=== PATIENT | female | born 1990 | race Caucasian/White ===

== ENCOUNTER 2021-05-29 11:58 | Emergency (ER) | payer MEDICAID, SELFPAY ==
--- NOTE | 2021-05-29 | ECG_ITS ---
Test Reason : CP Blood Pressure : / mmHG Vent. Rate : 069 BPM Atrial Rate : 069 BPM P-R Int : 128 ms QRS Dur : 092 ms QT Int : 400 ms P-R-T Axes : 026 035 030 degrees QTc Int : 428 ms Sinus rhythm with sinus arrhythmia with occasional Premature ventricular complexes Cannot rule out Anterior infarct , age undetermined Abnormal ECG No previous ECGs available Referred By: Generic ED Physician Electronically Signed By:MIRANDA WEAVER
--- NOTE | ~2021-05-29 | CT_ITS ---
EXAMINATION: CT ABDOMEN AND PELVIS WITH CONTRAST CLINICAL INFORMATION: Abdominal pain COMPARISON: None TECHNIQUE: Multidetector volumetric images were obtained from the superior aspect of the liver through the pubic symphysis following administration 100 mL of Omnipaque 350 intravenous contrast. Sagittal and coronal reformatted images were obtained on the technologist's workstation. Oral contrast: No This CT examination was performed using dose optimization techniques as appropriate, variously including the following: *Automated exposure control *Adjustment of mA and/or kV according to patient size (this includes techniques or standardized protocols for targeted exams where dose is matched to indication/reason for exam; i.e. extremities or head) *Use of iterative reconstruction technique DLP: 1437.90 mGy-cm FINDINGS: LUNG BASES: Linear consolidation in the right middle lobe. LIVER, GALLBLADDER, AND BILIARY TREE: The liver is normal in size, shape, and attenuation. No focal hepatic lesion or biliary ductal dilatation is present. Prior cholecystectomy. There is stent in the common bile duct extending into the duodenum. PANCREAS: Unremarkable. SPLEEN: Unremarkable. ADRENAL GLANDS: Unremarkable. KIDNEYS AND URETERS: The kidneys are normal in size, shape, and attenuation. No hydronephrosis, hydroureter, or calculi seen. No perinephric stranding. BLADDER: Unremarkable. GASTROINTESTINAL TRACT: The small and large bowel are unremarkable. The appendix is unremarkable. ABDOMINAL WALL: No significant hernia is appreciated. LYMPH NODES: Multiple small mesenteric lymph nodes in the mid abdomen as well as mild mesenteric fat stranding. VASCULAR: Unremarkable. PELVIC VISCERA: Unremarkable. OSSEOUS STRUCTURES: Unremarkable. CT/CT abdomen pelvis w con IMPRESSION: Multiple small mesenteric lymph nodes in the mid abdomen as well as mild mesenteric fat stranding may be due to mesenteric adenitis.
--- NOTE | ~2021-05-29 | CT_ITS ---
EXAMINATION: CT HEAD WITHOUT CONTRAST CLINICAL INFORMATION: Headache COMPARISON: None TECHNIQUE: Contiguous axial imaging was performed from the skull base to vertex without intravenous administration of contrast. This CT examination was performed using dose optimization techniques as appropriate, variously including the following: *Automated exposure control *Adjustment of mA and/or kV according to patient size (this includes techniques or standardized protocols for targeted exams where dose is matched to indication/reason for exam; i.e. extremities or head) *Use of iterative reconstruction technique DLP: 2356 mGy-cm FINDINGS: There is no evidence of acute intracranial hemorrhage or territorial infarction. No abnormal mass effect or midline shift is seen. [place] to white matter differentiation is well preserved. No extra-axial fluid collections are identified. The ventricles are normal in size. There is no abnormal attenuation within the brain parenchyma. The osseous structures and soft tissues are normal. The mastoid air cells and visualized portions of the paranasal sinuses are well aerated. CT/CT head/brain wo con IMPRESSION: No acute intracranial pathology.
[2021-05-29 12:45] VITALS: BP 125/65; PULSE 57; RESP 18; TEMP 36.3; O2SAT 96; BMI 54.1
--- NOTE | 2021-05-29 15:54 | ED.GENADULT ---
HPI - General Adult General Chief complaint: General Medical Stated complaint: headache, nausea, vomiting Time Seen by Provider: 05/29/21 15:50 History of Present Illness HPI narrative: Patient is a 30-year-old female presents today with having headache and nausea. Patient had a history of cholangitis. Was recently admitted to [facility]. At that time patient had an ERCP done was placed on antibiotics. She was admitted from the 5th to the [facility]. Was started on 2 days worth of antibiotics. Today had nausea. Has no abdominal pain. Positive generalized malaise weakness. Also had a mild headache that is diffuse over the entire abdomen. No coughing or congestion or upper respiratory symptoms. No diaphoresis. Patient is from home. Patient is vaccinated. Denies any bloody stool. Denies any abdominal pain. No neck pain no diaphoresis. Headache is gradual in onset is throbbing. Patient had a previous history of appendectomy and cholecystectomy done in [place]. It was done many years ago. Patient denies any pain on urination. Related Data Previous Rx's Medication Instructions Recorded ondansetron 4 mg disintegrating 4 mg PO TID PRN 5 Days #10 tab 05/29/21 tablet Allergies Allergy/AdvReac Type Severity Reaction Status Date / Time No Known Allergies Allergy Verified 05/29/21 15:50 Review of Systems Review of Systems: No fever no chills no chest pain No diaphoresis Positive nausea Positive headache No focal weakness all system reviewed otherwise negative [facility] Past Medical History Attestation statement: The following information was validated with the patient. Social History Social History Advance Directives: No Advance Directives Information Provided: No Patient : No Physical Exam Vital Signs: Vital Signs: Last Vital Signs Temp 97.3 F 05/29/21 12:45 Pulse 57 05/29/21 12:45 Resp 18 05/29/21 12:45 BP 125/65 05/29/21 12:45 Pulse Ox 96 05/29/21 12:45 Body Mass Index 54.1 Appearance: Alert. Oriented X3. No acute distress. Eyes: Pupils equal, round and reactive to light. ENT: Pharynx normal. Neck: Normal inspection. Neck supple. No lymph nodes noted. No crepitus CVS: Normal heart rate and rhythm. Pulses normal. Normal S1 and S2 Respiratory: No respiratory distress. Breath sounds normal. No Wheezing. No rales Abdomen: Soft and nontender. No rigidity. No distention. good BS x4 Skin: Skin warm and dry. Normal skin color. Normal skin turgor. Extremities: No lower extremity edema. Neurovascular intact to all extremities. No Lacerations. No Rash Neuro: Oriented X 3. No motor deficit. No sensory deficit. Moving all extermities. No slurred speech Medical Decision Making MDM Narrative Medical decision making narrative: CT scan of the heart was grossly negative for any acute evidence of bleeding. Patient given IV fluids. Monitor in the emergency department. Electrolytes unremarkable. Liver function tests show minimally elevated alk-phos only. CT scan of the abdomen showed no obstruction no abscess no perforation. It did show some lymph nodes consistent with adenitis. Could be residual from the colon guidance. Patient will be discharged home. There is no abscess is no perforation. There is no obstruction. Patient in stable condition. Lab Data Result diagrams: 05/29/21 16:47 05/29/21 16:47 Labs: Lab Results 05/29/21 05/29/21 Range/Units 16:47 16:47 WBC 13.0 H (4.8-10.8) X10*3/uL RBC 4.25 (4.20-5.50) X10*6/uL Hgb 12.4 (12.0-16.0) g/dl Hct 38.3 (37-47) % MCV 90.1 (80-98) fL MCH 29.2 (27.0-33.0) pg MCHC 32.4 (31.0-35.0) g/dl RDW 15.0 (11.0-16.0) % Plt Count 439 H (160-400) X10*3/uL MPV 9.7 (9.4-12.3) fL Immature Gran % (Auto) 0.8 H (0.0-0.4) % Neut % (Auto) 61.4 (45-73) % Lymph % (Auto) 30.8 (20-40) % [place] % (Auto) 5.1 (2-11) % Eos % (Auto) 1.7 (0-4) % Baso % (Auto) 0.2 (0-2) % Lymph # (Auto) 4.0 (1.2-4.9) X10*3/uL [place] # (Auto) 0.7 (0.1-1.2) X10*3/uL Eos # (Auto) 0.2 (0.0-0.4) X10*3/uL Baso # (Auto) 0.0 (0.0-0.2) X10*3/uL Abs Immat Gran (auto) 0.10 H (0.00-0.03) X10*3/uL Absolute Neuts (auto) 8.0 (2.0-8.3) X10*3/uL Absolute Nucleated RBC 0.000 (0.0-0.012) X10*3/uL Nucleated RBC % (auto) 0.0 (0.0-0.2) /100WBC Sodium 138 (135-145) mmol/L Potassium 4.1 (3.3-5.1) mmol/L Chloride 107 (96-108) mmol/L Carbon Dioxide 24 (22-29) mmol/L Anion Gap 11 L (12-20) BUN 9 (9-16) mg/dL Creatinine 0.73 (0.5-1.4) mg/dL Estim Creat Clear Calc 168.7 Estimated GFR > 60 Random Glucose 94 (60-115) mg/dL Calcium 9.7 (8.4-10.2) mg/dL Total Bilirubin 0.7 (0.0-1.0) mg/dL AST 17 (5-31) U/L ALT 31 (0-31) U/L Alkaline Phosphatase 125 H (39-117) U/L Total Protein 6.9 (6.5-8.0) g/dL Albumin 3.9 (3.5-5.0) g/dL Lipase 33 (8-78) U/L Beta HCG, Quant < 2 mIU/mL Discharge Plan Discharge Clinical Impression: Abdominal pain, Headache Patient Disposition: Home, Self-Care Instructions: Acute Headache (ED), Abdominal Pain (ED) Prescriptions: New ondansetron 4 mg tablet,disintegrating 4 mg PO TID PRN (Reason: nausea and vomiting) 5 Days Qty: 10 RF: 0 Referrals: [facility] [Provider Group] - 2 days Physician,None [Primary Care Provider] - 2 days Print Language: Greek
[2021-05-29] MEDS: Ketorolac Tromethamine 15 MG/ML VIAL IVPUSH (16:50)
[2021-05-29] MEDS: Ondansetron ODT 4 MG TAB.RAPDIS SUBLINGUAL (16:50)
[2021-05-29] MEDS: 0.9 % Sodium Chloride 1,000 ML 999 ML IV (16:50)
[2021-05-29 16:53] LABS: Basophils Percent Auto 0.2 % (0-2); Eosinophils Absolute Auto 0.2 X10*3/uL (0.0-0.4); Eosinophils Percent Auto 1.7 % (0-4); Hematocrit 38.3 % (37-47); Hemoglobin 12.4 g/dl (12.0-16.0); Imm Gran Pct Auto 0.8 % (0.0-0.4); Lymphocytes Percent Auto 30.8 % (20-40); MANUAL DIFF FLAG NO; Mean Corpuscular HGB Conc 32.4 g/dl (31.0-35.0); Mean Corpuscular Hemoglobin 29.2 pg (27.0-33.0); Mean Corpuscular Volume 90.1 fL (80-98); Mean Platelet Volume 9.7 fL (9.4-12.3); Monocytes Absolute Auto 0.7 X10*3/uL (0.1-1.2); Monocytes Percent Auto 5.1 % (2-11); Neutrophils Percent Auto 61.4 % (45-73); Platelet Count 439 X10*3/uL (160-400); Red Blood Count 4.25 X10*6/uL (4.20-5.50)
[2021-05-29 17:09] LABS: Alanine Aminotransferase 31 U/L (0-31); Albumin Level 3.9 g/dL (3.5-5.0); Alkaline Phosphatase 125 U/L (39-117); Anion Gap 11 (12-20); Aspartate Amino Transferase 17 U/L (5-31); Bilirubin Total 0.7 mg/dL (0.0-1.0); Blood Urea Nitrogen 9 mg/dL (9-16); Calcium 9.7 mg/dL (8.4-10.2); Carbon Dioxide 24 mmol/L (22-29); Chloride 107 mmol/L (96-108); Creatinine Clr Calc Pharmacy 168.7; Estimated Glomerular Filt Rate > 60; Glucose Random 94 mg/dL (60-115); Lipase 33 U/L (8-78); Potassium 4.1 mmol/L (3.3-5.1); Sodium 138 mmol/L (135-145); Total Protein 6.9 g/dL (6.5-8.0)
[2021-05-29 17:19] LABS: HCG Quantitative < 2 mIU/mL
[2021-05-29] MEDS: iohexoL 350 MG/ML 100 ML INFUS..BTL IV (18:03)
== END 2021-05-29 19:54 | disposition home or self-care (01) ==
PROVIDERS: Emergency Provider Emergency Medicine Emergency Medical Services
DX: R51.9 Headache, unspecified (principal); R11.0 Nausea; R10.9 Unspecified abdominal pain; Z79.899 Other long term (current) drug therapy
CPT/HCPCS: 36415; 70450; 74177; 80053; 83690; 84702; 85025; 93005; 96361; 96374; 99284; 99285; J1885; Q9967

== ENCOUNTER 2021-08-06 00:02 | Emergency (ER) | payer OTHER, SELFPAY ==
--- NOTE | ~2021-08-06 | CT_ITS ---
EXAMINATION: CT ABDOMEN AND PELVIS WITHOUT CONTRAST CLINICAL INFORMATION: Flank pain COMPARISON: 05/29/2021 TECHNIQUE: Multidetector volumetric imaging was performed from the superior aspect of the liver through the pubic symphysis. Sagittal and coronal reformatted images were obtained on the technologist's workstation. This CT examination was performed using dose optimization techniques as appropriate, variously including the following: *Automated exposure control *Adjustment of mA and/or kV according to patient size (this includes techniques or standardized protocols for targeted exams where dose is matched to indication/reason for exam; i.e. extremities or head) *Use of iterative reconstruction technique DLP: 1451 mGy-cm FINDINGS: LUNG BASES: The visualized lung bases are unremarkable. LIVER, GALLBLADDER, AND BILIARY TREE: The liver is homogeneous in attenuation. There are 2 common bile duct stents. Trace pneumobilia noted in the left lobe. No appreciable intrahepatic biliary ductal dilatation. PANCREAS: Unremarkable. SPLEEN: Unremarkable. ADRENAL GLANDS: Unremarkable. KIDNEYS AND URETERS: The kidneys are normal in size, shape, and attenuation. No hydronephrosis, hydroureter, or calculi seen. No perinephric stranding. BLADDER: Minimally distended and grossly unremarkable. GASTROINTESTINAL TRACT: Small bowel suture line noted in the right lower quadrant. No evidence of bowel obstruction. No significant bowel wall thickening is seen. ABDOMINAL WALL: No significant hernia is appreciated. LYMPH NODES: Scattered mesenteric and retroperitoneal subcentimeter lymph nodes are present, without significant enlargement by size criteria. Mild associated stranding noted in the mid abdomen, similar to prior. VASCULAR: Unremarkable. PELVIC VISCERA: Unremarkable. OSSEOUS STRUCTURES: Unremarkable. CT/CT abdomen pelvis wo con IMPRESSION: 1. No hydronephrosis or ureteral calculus bilaterally. 2. Common bile duct stents in place, without appreciable biliary ductal dilatation. 3. Redemonstrated mild stranding adjacent to subcentimeter lymph nodes in the central abdomen, of uncertain etiology and similar to prior; this may represent a chronic finding.
[2021-08-06 00:29] VITALS: BP 122/72; PULSE 71; RESP 16; TEMP 36.4; O2SAT 98; BMI 58.2
[2021-08-06 01:02] LABS: Basophils Percent Auto 0.2 % (0-2); Eosinophils Absolute Auto 0.2 X10*3/uL (0.0-0.4); Eosinophils Percent Auto 1.9 % (0-4); Hematocrit 38.8 % (37.0-47.0); Hemoglobin 12.9 g/dl (12.0-16.0); Imm Gran Abs Auto 0.03 X10*3/uL (0.00-0.03); Imm Gran Pct Auto 0.2 % (0.0-0.4); Lymphocytes Absolute Auto 5.2 X10*3/uL (1.2-4.9); Lymphocytes Percent Auto 41.3 % (20-40); MANUAL DIFF FLAG SCAN; Mean Corpuscular HGB Conc 33.2 g/dl (31.0-35.0); Mean Corpuscular Hemoglobin 29.3 pg (27.0-33.0); Mean Corpuscular Volume 88.2 fL (80.0-98.0); Mean Platelet Volume 10.2 fL (9.4-12.3); Monocytes Absolute Auto 0.7 X10*3/uL (0.1-1.2); Monocytes Percent Auto 5.9 % (2-11); Neutrophils Absolute Auto 6.4 x10*3/uL (2.0-8.3); Neutrophils Percent Auto 50.5 % (45-73); Platelet Count 399 X10*3/uL (160-400); Red Cell Distribution Width 13.5 % (11.0-16.0); SCAN SMEAR FLAG 1; White Blood Count 12.6 X10*3/uL (4.8-10.8)
[2021-08-06 01:02] LABS: Appearance Urine CLEAR; Color Urine YELLOW; Glucose Urine UA NEG (NEG); Leukocyte Esterase Urine NEG (NEG); Nitrite Urine NEG (NEG); PH 6.5 (5.0-8.0); Urine Blood NEG (NEG); Urine Ketones NEG (NEG); Urine Protein NEG (NEG-TRACE)
[2021-08-06 01:03] LABS: SLIDE REVIEW VERIFIED
[2021-08-06 01:21] LABS: Alanine Aminotransferase 22 U/L (0-31); Alkaline Phosphatase 80 U/L (39-117); Anion Gap 15 (12-20); Aspartate Amino Transferase 16 U/L (5-31); Bilirubin Total 0.2 mg/dL (0.0-1.0); Blood Urea Nitrogen 15 mg/dL (9-16); Calcium 9.6 mg/dL (8.4-10.2); Carbon Dioxide 23 mmol/L (22-29); Chloride 106 mmol/L (96-108); Creatinine Clr Calc Pharmacy 163.5; Estimated Glomerular Filt Rate > 60; Glucose Random 90 mg/dL (60-115); Lipase 31 U/L (8-78); Potassium 4.2 mmol/L (3.3-5.1); Sodium 140 mmol/L (135-145); Total Protein 7.1 g/dL (6.5-8.0)
[2021-08-06 02:55] VITALS: BP 139/66; PULSE 78; RESP 18; TEMP 36.9; O2SAT 100
[2021-08-06 03:09] LABS: Urine Pregnancy NEGATIVE (NEGATIVE)
[2021-08-06 03:10] LABS: UPreg QC Valid YES
--- NOTE | 2021-08-06 04:27 | ED_ITS ---
HPI - Abdominal Pain General Chief Complaint: Abdominal Pain Stated Complaint: abd pain Time Seen by Provider: 08/06/21 04:20 Source: patient Mode of arrival: ambulatory Limitations: no limitations History of Present Illness HPI narrative: Patient comes to emergency room complaining of epigastric pain. Patient states that on August 02 she had an ERCP done in [place], [place]. Patient states that earlier today she started feeling some epigastric discomfort. Patient states that in her discharge instructions stated that if she has any abdominal pain to return to the emergency room. Denies fever chills, no vomiting or diarrhea Related Data Previous Rx's Medication Instructions Recorded ondansetron 4 mg disintegrating 4 mg PO TID PRN 5 Days #10 tab 05/29/21 tablet tramadol 50 mg tablet 50 mg PO Q8H PRN #7 tab 08/06/21 Allergies Allergy/AdvReac Type Severity Reaction Status Date / Time clindamycin Allergy Hives Verified 08/06/21 00:37 Review of Systems Review of Systems Constitutional : No Weight loss, No Fever, No Chills, No Night Sweats, No Fatigue, No Malaise ENT/Mouth : No Hearing loss, No Ear Pain, No Nasal Congestion, No Sinus Pain, No Hoarseness, No sore throat, No Rhinorrhea, No Swallowing Difficulty Eyes: No Eye Pain, No Swelling, No Redness, No Foreign Body, No Discharge, No Vision Changes Cardiovascular : No Chest Pain, No SOB, No Dyspnea on Exertion, No Orthopnea, No Edema, No Palpitations Respiratory : No Cough, No Sputum, No Wheezing, No Smoke Exposure, No Dyspnea Gastrointestinal : No Nausea, No Vomiting, No Diarrhea, No Constipation, complaining of epigastric pain, No Hematochezia, No Melena Genitourinary : no irregular bleeding, No Dysuria, No Urinary Frequency, No Hematuria, No Urinary Incontinence, No Urgency, No Flank Pain, No Urinary Flow Changes, No Hesitancy Musculoskeletal : No joint pain, No Myalgias, No Joint Swelling Skin : No Skin Lesions, No rash Neuro : No Weakness, No Numbness, No Paresthesias, No Loss of Consciousness, No Dizziness, No Headache Psych : No Anxiety/Panic, No Depression, No SI/HI/AH/VH, No Social Issues, Heme/Lymph: No Bruising, No Bleeding,No Lymphadenopathy Endocrine : No Polyuria, No Polydipsia, No Temperature Intolerance Physical Exam Vital Signs: Vital Signs: Last Vital Signs Temp 98.4 F 08/06/21 02:55 Pulse 78 08/06/21 02:55 Resp 18 08/06/21 02:55 BP 139/66 08/06/21 02:55 Pulse Ox 100 08/06/21 02:55 Body Mass Index 58.2 Const: Other: Appearance: Alert. Oriented X3. No acute distress. Morbidly obese. Eyes: Pupils equal, round and reactive to light. ENT: Pharynx normal. Neck: Normal inspection. Neck supple. No lymph nodes noted. No crepitus CVS: Normal heart rate and rhythm. Pulses normal. Normal S1 and S2 Respiratory: No respiratory distress. Breath sounds normal. No Wheezing. No rales Abdomen: Soft , very mild discomfort to palpation in the epigastric area, no rebound, no guarding No rigidity. No distention. good BS x4 Skin: Skin warm and dry. Normal skin color. Normal skin turgor. Extremities: No lower extremity edema. No Lacerations. No Rash Neuro: Oriented X 3. No motor deficit. No sensory deficit. Moving all extermities. No slurred speech. Course Course Course Narrative: I discussed with the patient that her labs are unremarkable, CT scan does not show any perforation or pancreatitis. I discussed with the patient that she if she has any worsening or ongoing pain, she needs to return to the emergency room. Patient was given 1 dose of IM Toradol. Patient instructed to follow-up with gastroenterology, since she cannot return to [place] for follow-up MDM - Abdominal Pain Lab Data Result diagrams: 08/06/21 00:52 08/06/21 00:52 Labs: Lab Results 08/06/21 08/06/21 08/06/21 Range/Units 00:50 00:52 00:52 WBC 12.6 H (4.8-10.8) X10*3/uL RBC 4.40 (4.20-5.50) X10*6/uL Hgb 12.9 (12.0-16.0) g/dl Hct 38.8 (37.0-47.0) % MCV 88.2 (80.0-98.0) fL MCH 29.3 (27.0-33.0) pg MCHC 33.2 (31.0-35.0) g/dl RDW 13.5 (11.0-16.0) % Plt Count 399 (160-400) X10*3/uL MPV 10.2 (9.4-12.3) fL Immature Gran % (Auto) 0.2 (0.0-0.4) % Neut % (Auto) 50.5 (45-73) % Lymph % (Auto) 41.3 H (20-40) % [place] % (Auto) 5.9 (2-11) % Eos % (Auto) 1.9 (0-4) % Baso % (Auto) 0.2 (0-2) % Lymph # (Auto) 5.2 H (1.2-4.9) X10*3/uL [place] # (Auto) 0.7 (0.1-1.2) X10*3/uL Eos # (Auto) 0.2 (0.0-0.4) X10*3/uL Baso # (Auto) 0.0 (0.0-0.2) X10*3/uL Abs Immat Gran (auto) 0.03 (0.00-0.03) X10*3/uL Absolute Neuts (auto) 6.4 (2.0-8.3) x10*3/uL Absolute Nucleated RBC 0.000 (0.0-0.012) X10*3/uL Nucleated RBC % (auto) 0.0 (0.0-0.2) /100WBC Smear Tech's Comments VERIFIED Sodium 140 (135-145) mmol/L Potassium 4.2 (3.3-5.1) mmol/L Chloride 106 (96-108) mmol/L Carbon Dioxide 23 (22-29) mmol/L Anion Gap 15 (12-20) BUN 15 D (9-16) mg/dL Creatinine 0.79 (0.5-1.4) mg/dL Estim Creat Clear Calc 163.5 Estimated GFR > 60 Random Glucose 90 (60-115) mg/dL Calcium 9.6 (8.4-10.2) mg/dL Total Bilirubin 0.2 (0.0-1.0) mg/dL AST 16 (5-31) U/L ALT 22 (0-31) U/L Alkaline Phosphatase 80 D (39-117) U/L Total Protein 7.1 (6.5-8.0) g/dL Albumin 4.0 (3.5-5.0) g/dL Lipase 31 (8-78) U/L Urine Color YELLOW Urine Appearance CLEAR Urine pH 6.5 (5.0-8.0) Ur Specific [place] 1.020 (1.005-1.025) Urine Protein NEG (NEG-TRACE) MG/DL Urine Glucose (UA) NEG (NEG) MG/DL Urine Ketones NEG (NEG) MG/DL Urine Blood NEG (NEG) Urine Nitrite NEG (NEG) Ur Leukocyte Esterase NEG (NEG) Urine Test (NEGATIVE) 08/06/21 Range/Units 03:03 WBC (4.8-10.8) X10*3/uL RBC (4.20-5.50) X10*6/uL Hgb (12.0-16.0) g/dl Hct (37.0-47.0) % MCV (80.0-98.0) fL MCH (27.0-33.0) pg MCHC (31.0-35.0) g/dl RDW (11.0-16.0) % Plt Count (160-400) X10*3/uL MPV (9.4-12.3) fL Immature Gran % (Auto) (0.0-0.4) % Neut % (Auto) (45-73) % Lymph % (Auto) (20-40) % [place] % (Auto) (2-11) % Eos % (Auto) (0-4) % Baso % (Auto) (0-2) % Lymph # (Auto) (1.2-4.9) X10*3/uL [place] # (Auto) (0.1-1.2) X10*3/uL Eos # (Auto) (0.0-0.4) X10*3/uL Baso # (Auto) (0.0-0.2) X10*3/uL Abs Immat Gran (auto) (0.00-0.03) X10*3/uL Absolute Neuts (auto) (2.0-8.3) x10*3/uL Absolute Nucleated RBC (0.0-0.012) X10*3/uL Nucleated RBC % (auto) (0.0-0.2) /100WBC Smear Tech's Comments Sodium (135-145) mmol/L Potassium (3.3-5.1) mmol/L Chloride (96-108) mmol/L Carbon Dioxide (22-29) mmol/L Anion Gap (12-20) BUN (9-16) mg/dL Creatinine (0.5-1.4) mg/dL Estim Creat Clear Calc Estimated GFR Random Glucose (60-115) mg/dL Calcium (8.4-10.2) mg/dL Total Bilirubin (0.0-1.0) mg/dL AST (5-31) U/L ALT (0-31) U/L Alkaline Phosphatase (39-117) U/L Total Protein (6.5-8.0) g/dL Albumin (3.5-5.0) g/dL Lipase (8-78) U/L Urine Color Urine Appearance Urine pH (5.0-8.0) Ur Specific [place] (1.005-1.025) Urine Protein (NEG-TRACE) MG/DL Urine Glucose (UA) (NEG) MG/DL Urine Ketones (NEG) MG/DL Urine Blood (NEG) Urine Nitrite (NEG) Ur Leukocyte Esterase (NEG) Urine Test NEGATIVE (NEGATIVE) Imaging Data CT scan - abdomen: Radiologist's impression: FINDINGS: LUNG BASES: The visualized lung bases are unremarkable.? LIVER, GALLBLADDER, AND BILIARY TREE: The liver is homogeneous in attenuation. There are 2 common bile duct stents. Trace pneumobilia noted in the left lobe. No appreciable intrahepatic biliary ductal dilatation. PANCREAS: Unremarkable.? SPLEEN: Unremarkable.? ADRENAL GLANDS: Unremarkable.? KIDNEYS AND URETERS: The kidneys are normal in size, shape, and attenuation. No hydronephrosis, hydroureter, or calculi seen. No perinephric stranding. BLADDER: Minimally distended and grossly unremarkable.? GASTROINTESTINAL TRACT: Small bowel suture line noted in the right lower quadrant. No evidence of bowel obstruction. No significant bowel wall thickening is seen. ABDOMINAL WALL: No significant hernia is appreciated.? LYMPH NODES: Scattered mesenteric and retroperitoneal subcentimeter lymph nodes are present, without significant enlargement by size criteria. Mild associated stranding noted in the mid abdomen, similar to prior. VASCULAR: Unremarkable. PELVIC VISCERA: Unremarkable.? OSSEOUS STRUCTURES: Unremarkable.? CT/CT abdomen pelvis wo con IMPRESSION: 1.? No hydronephrosis or ureteral calculus bilaterally. 2.? Common bile duct stents in place, without appreciable biliary ductal dilatation. 3.? Redemonstrated mild stranding adjacent to subcentimeter lymph nodes in the central abdomen, of uncertain etiology and similar to prior; this may represent a chronic finding. ? Discharge Plan Discharge Clinical Impression: Acute epigastric pain Patient Disposition: Home, Self-Care Instructions: Epigastric Pain (ED) Additional Instructions: Please follow-up with your primary care physician tomorrow. If you have any worsening or new symptoms, please return to the emergency room or call 911 Prescriptions: New tramadol 50 mg tablet 50 mg PO Q8H PRN (Reason: pain) Qty: 7 RF: 0 No Action ondansetron 4 mg tablet,disintegrating 4 mg PO TID PRN (Reason: nausea and vomiting) 5 Days Qty: 10 RF: 0 PMFSH Past Medical History Surgical History (Updated 08/06/21 @ 04:28 by Breanna Oliva MD) S/P ERCP Social History Social History Advance Directives: No Advance Directives Information Provided: Yes
[2021-08-06] MEDS: Ketorolac Tromethamine 60 MG/2 ML VIAL IM (04:49)
[2021-08-06 05:03] VITALS: BP 120/66; PULSE 66; RESP 16
== END 2021-08-06 05:04 | disposition home or self-care (01) ==
PROVIDERS: Emergency Provider Emergency Medicine
DX: R10.13 Epigastric pain (principal); Z98.890 Other specified postprocedural states
CPT/HCPCS: 36415; 74176; 80053; 81003; 81025; 83690; 85025; 96372; 99284; J1885

== ENCOUNTER 2021-08-28 20:04 | Emergency (ER) | payer MEDICAID, SELFPAY ==
[2021-08-28 20:09] VITALS: BP 121/70; PULSE 81; RESP 16; TEMP 36.9; O2SAT 99; BMI 31.6
--- NOTE | 2021-08-29 01:41 | ECG_ITS ---
Test Reason : chest pain Blood Pressure : / mmHG Vent. Rate : 080 BPM Atrial Rate : 080 BPM P-R Int : 146 ms QRS Dur : 090 ms QT Int : 380 ms P-R-T Axes : 031 054 050 degrees QTc Int : 438 ms Sinus rhythm with sinus arrhythmia with frequent Premature ventricular complexes Otherwise normal ECG When compared with ECG of 29-MAY-2021 12:53, No significant change was found Referred By: Danelle Shepard Electronically Signed By:KARI NGUYEN MD
[2021-08-29 06:20] LABS: Basophils Percent Auto 0.3 % (0-2); Eosinophils Absolute Auto 0.2 X10*3/uL (0.0-0.4); Eosinophils Percent Auto 2.4 % (0-4); Hematocrit 36.6 % (37.0-47.0); Hemoglobin 11.8 g/dl (12.0-16.0); Imm Gran Abs Auto 0.03 X10*3/uL (0.00-0.03); Imm Gran Pct Auto 0.3 % (0.0-0.4); Lymphocytes Absolute Auto 4.3 X10*3/uL (1.2-4.9); Lymphocytes Percent Auto 48.5 % (20-40); MANUAL DIFF FLAG NO; Mean Corpuscular HGB Conc 32.2 g/dl (31.0-35.0); Mean Corpuscular Hemoglobin 28.9 pg (27.0-33.0); Mean Corpuscular Volume 89.5 fL (80.0-98.0); Mean Platelet Volume 10.4 fL (9.4-12.3); Monocytes Absolute Auto 0.7 X10*3/uL (0.1-1.2); Monocytes Percent Auto 7.5 % (2-11); Neutrophils Absolute Auto 3.6 x10*3/uL (2.0-8.3); Platelet Count 387 X10*3/uL (160-400); Red Blood Count 4.09 X10*6/uL (4.20-5.50); Red Cell Distribution Width 13.7 % (11.0-16.0); White Blood Count 8.8 X10*3/uL (4.8-10.8)
[2021-08-29 06:22] LABS: Anion Gap 12 (12-20); Carbon Dioxide 24 mmol/L (22-29); Chloride 107 mmol/L (96-108); HCG Quantitative < 2 mIU/mL; Magnesium 1.9 mg/dL (1.6-2.6); Potassium 4.2 mmol/L (3.3-5.1); Sodium 139 mmol/L (135-145)
== END 2021-08-29 02:50 | disposition home or self-care (01) ==
PROVIDERS: Emergency Provider Emergency Medicine Emergency Medical Services
DX: F41.9 Anxiety disorder, unspecified (principal); R20.0 Anesthesia of skin; F17.200 Nicotine dependence, unspecified, uncomplicated
CPT/HCPCS: 36415; 80051; 83735; 84702; 85025; 93005; 96374; 96375; 99282; 99283; 99284

== ENCOUNTER 2021-09-15 15:37 | Emergency (ER) | payer MEDICAID, SELFPAY | END 2021-09-15 18:22 | disposition left against medical advice (07) | PROVIDERS: Emergency Provider Emergency Medicine | DX: R51.9 Headache, unspecified (principal) ==

== ENCOUNTER 2021-09-28 14:53 | Outpatient (REF) | payer MEDICAID, SELFPAY ==
[2021-09-28 15:37] LABS: Binax Internal Control QC Valid; Binax Lot number: 9864; Binax Now Covid-19 Ag Negative (Negative)
== END 2021-09-28 14:54 | disposition home or self-care (01) ==
LOC: HO.LAB 14:53
PROVIDERS: Visit Provider Internal Medicine
DX: Z20.822 Contact with and (suspected) exposure to COVID-19 (principal)
CPT/HCPCS: C9803

== ENCOUNTER 2021-10-10 12:41 | Outpatient (REF) | payer MEDICAID, SELFPAY ==
--- NOTE | ~2021-10-10 | XR_ITS ---
EXAMINATION: CERVICAL, THORACIC AND LUMBAR SPINE. CLINICAL INFORMATION: Pain. COMPARISON: None TECHNIQUE: 3 views cervical spine, 3 views dorsal spine and 5 views lumbar spine. FINDINGS: Cervical spine: There is mild straightening of cervical lordosis. The vertebral heights, alignment and disc heights are normal. No visible acute fracture, dislocation or subluxation seen. The prevertebral soft tissues are normal. Dorsal spine: There is normal thoracic kyphosis. The vertebral heights, alignment and disc heights are normal. No visible acute fracture, dislocation or lytic process seen. Lumbar spine: There is normal lumbar lordosis. The vertebral heights, alignment and disc heights are normal. No visible acute fracture, dislocation or lytic process seen. The paravertebral soft tissues are normal. There are surgical john in the right upper quadrant from previous cholecystectomy. XR/XR thoracic spine 2V IMPRESSION: Mild straightening of cervical lordosis likely spasm. No visible acute fracture, dislocation or lytic process seen. Unremarkable dorsal spine exam. Unremarkable lumbar spine exam.
--- NOTE | ~2021-10-10 | XR_ITS ---
EXAMINATION: CERVICAL, THORACIC AND LUMBAR SPINE. CLINICAL INFORMATION: Pain. COMPARISON: None TECHNIQUE: 3 views cervical spine, 3 views dorsal spine and 5 views lumbar spine. FINDINGS: Cervical spine: There is mild straightening of cervical lordosis. The vertebral heights, alignment and disc heights are normal. No visible acute fracture, dislocation or subluxation seen. The prevertebral soft tissues are normal. Dorsal spine: There is normal thoracic kyphosis. The vertebral heights, alignment and disc heights are normal. No visible acute fracture, dislocation or lytic process seen. Lumbar spine: There is normal lumbar lordosis. The vertebral heights, alignment and disc heights are normal. No visible acute fracture, dislocation or lytic process seen. The paravertebral soft tissues are normal. There are surgical john in the right upper quadrant from previous cholecystectomy. XR/XR cervical spine 2V IMPRESSION: Mild straightening of cervical lordosis likely spasm. No visible acute fracture, dislocation or lytic process seen. Unremarkable dorsal spine exam. Unremarkable lumbar spine exam.
--- NOTE | ~2021-10-10 | XR_ITS ---
EXAMINATION: CERVICAL, THORACIC AND LUMBAR SPINE. CLINICAL INFORMATION: Pain. COMPARISON: None TECHNIQUE: 3 views cervical spine, 3 views dorsal spine and 5 views lumbar spine. FINDINGS: Cervical spine: There is mild straightening of cervical lordosis. The vertebral heights, alignment and disc heights are normal. No visible acute fracture, dislocation or subluxation seen. The prevertebral soft tissues are normal. Dorsal spine: There is normal thoracic kyphosis. The vertebral heights, alignment and disc heights are normal. No visible acute fracture, dislocation or lytic process seen. Lumbar spine: There is normal lumbar lordosis. The vertebral heights, alignment and disc heights are normal. No visible acute fracture, dislocation or lytic process seen. The paravertebral soft tissues are normal. There are surgical john in the right upper quadrant from previous cholecystectomy. XR/XR lumbar spine 2-3V IMPRESSION: Mild straightening of cervical lordosis likely spasm. No visible acute fracture, dislocation or lytic process seen. Unremarkable dorsal spine exam. Unremarkable lumbar spine exam.
== END 2021-10-10 12:42 | disposition home or self-care (01) ==
LOC: HO.XRAY 12:41
PROVIDERS: Absent Provider Nurse Practitioner Primary Care; PCP Nurse Practitioner Primary Care; Visit Provider Emergency Medicine
DX: M54.2 Cervicalgia (principal); M54.50 Low back pain, unspecified; M54.6 Pain in thoracic spine
CPT/HCPCS: 72040; 72070; 72100

== ENCOUNTER 2021-10-18 13:44 | Outpatient (REF) | payer MEDICAID, SELFPAY ==
--- NOTE | ~2021-10-18 | US_ITS ---
EXAM: Pelvic Ultrasound CLINICAL INDICATION: Abnormal uterine bleeding for 2 months. COMPARISON: No similar prior imaging available for comparison. TECHNIQUE: The pelvis was evaluated using transabdominal and transvaginal imaging. FINDINGS: The uterus measures 10.7 x 5.1 x 7.6 cm in longitudinal by AP by transverse dimension. The uterus has a mildly arcuate appearance. The endometrial stripe is not thickened and measures 1.2 cm. The left ovary measures approximately 3.1 x 1.7 x 3.8 cm and is normal. The right ovary measures approximately 3.9 x 2.2 x 1.9 cm and is also normal. There are no abnormal adnexal masses. There is no free fluid in the pelvis. US/US pelvic and transvaginal IMPRESSION: -Mild arcuate appearance of the uterus. -Endometrium measures 1.2 cm in thickness.
== END 2021-10-18 13:45 | disposition home or self-care (01) ==
LOC: HO.US 13:44
PROVIDERS: PCP Nurse Practitioner Primary Care; Visit Provider Nurse Practitioner Primary Care
DX: N92.6 Irregular menstruation, unspecified (principal)
CPT/HCPCS: 76830; 76856

== ENCOUNTER 2021-10-29 08:28 | Emergency (ER) | payer MEDICAID, SELFPAY | END 2021-10-29 10:05 | disposition left against medical advice (07) | PROVIDERS: Emergency Provider Emergency Medicine | DX: R10.9 Unspecified abdominal pain (principal) ==

== ENCOUNTER → 2021-11-26 14:35 | Outpatient (BNVA) | payer MEDICAID, SELFPAY | PROVIDERS: PCP Nurse Practitioner Primary Care; Referring Provider Nurse Practitioner Primary Care; Visit Provider Internal Medicine Gastroenterology | DX: K60.2 Anal fissure, unspecified (principal); K83.1 Obstruction of bile duct | CPT/HCPCS: 99202 ==

== ENCOUNTER 2021-12-27 09:03 | Day surgery (SDC) | payer MEDICAID, SELFPAY ==
[2021-12-21 13:33] VITALS: BMI 52.4
--- NOTE | 2021-12-26 08:55 | HO.ANESPROP2 ---
Documented by User: Billie Banks NP 12/26/21 08:58 HPI - Anesthesia Eval Consult details Narrative: 31yo F for Colonoscopy PMFSH Active Problems Active Problems: All Active Problems (Updated 12/21/21 @ 13:36 by Sophia Armando RN) Anal fissure (Acute) Biliary stricture (Acute) Past Medical History Medical History Abdominal pain History of biliary stent insertion Family History Family History (Updated 11/26/21 @ 14:56 by IRENE Bliss) Mother HTN (hypertension) Diabetes Father Hernia Paternal Grandmother Colon cancer Paternal Grandfather Diabetes HTN (hypertension) Heart problem Surgical History Surgical History History of common bile duct surgery History of esophagogastroduodenoscopy (EGD) Hx of appendectomy Hx of cholecystectomy S/P ERCP Social History Social History Patient Tobacco Use Status: Never used Tobacco Advance Directives: No Advance Directives Information Provided: Yes Advance Directives on File: No Meds Allergies Allergy/AdvReac Type Severity Reaction Status Date / Time clindamycin Allergy Hives Verified 11/26/21 14:51 Exam Exam Date and Time: December 26, 2021 0855 Height,Weight and Vital Signs: Height 5 ft 5 in Weight 142.882 kg Narrative Narrative: EKG 08/2021 Vent. Rate : 080 BPM ? ? Atrial Rate : 080 BPM ?? P-R Int : 146 ms? QRS Dur : 090 ms ? ? QT Int : 380 ms ? ? ? P-R-T Axes : 031 054 050 degrees ?? QTc Int : 438 ms ? Sinus rhythm with sinus arrhythmia with frequent Premature ventricular complexes Otherwise normal ECG When compared with ECG of 29-MAY-2021 12:53, No significant change was found Assessment and Plan Assessment Anesthesia Assessment: Chart Reviewed Documented by User: Marcelino Lu MD 12/27/21 09:44 PMFSH Past Medical History Medical History Abdominal pain History of biliary stent insertion Family History Family History (Updated 11/26/21 @ 14:56 by IRENE Bliss) Mother HTN (hypertension) Diabetes Father Hernia Paternal Grandmother Colon cancer Paternal Grandfather Diabetes HTN (hypertension) Heart problem Family history of problems with anesthesia: No Surgical History Surgical History History of common bile duct surgery History of esophagogastroduodenoscopy (EGD) Hx of appendectomy Hx of cholecystectomy S/P ERCP History of Problems with Anesthesia: No Social History Social History Patient Tobacco Use Status: Never used Tobacco Advance Directives: No Advance Directives Information Provided: Yes Advance Directives on File: No Meds Allergies Allergy/AdvReac Type Severity Reaction Status Date / Time clindamycin Allergy Hives Verified 11/26/21 14:51 Exam Airway Mallampati Class: III TM Dist: >3cm Neck ROM: Full Assessment and Plan Assessment Anesthesia Assessment: Anesthesia Plan Discussed and Smoking Cess. Discussed Final Anesthetic Review Family History of Problems with Anesthesia: No History of Problems with Anesthesia: No NPO: Yes ASA Class: III Final Preanesthetic Review: No Changes in Pt Med Stat, Meds/Allgs Chart Reviewed, Consent Obtained/Reviewed and Anes Risks/Benef Reviewed Procedure Risk: Low Anesthetic Plan Anesthetic Plan: MAC: Disposition: Standard PACU
[2021-12-27 09:29] VITALS: BP 112/54; PULSE 61; RESP 16; TEMP 36.2; O2SAT 98
[2021-12-27 09:34] LABS: UPreg QC Valid YES; Urine Pregnancy NEGATIVE (NEGATIVE)
[2021-12-27] MEDS: Lactated Ringers 1,000 ML 100 ML IVCONT (09:37)
--- NOTE | 2021-12-27 09:58 | MHC.SHP ---
Pre-Procedural Eval Section A Date of Service: 12/27/21 Section B Chief Complaint: anal fissure Details of Present Illness: FH of CRC in mother, blood in stools Relevant Family History (Specify if Yes): Yes Relevant Social History: Tobacco Use Present Medications: see Short Stay Collaborative assessment Medical History: Significant History (Abdominal pain History of biliary stent insertion) History of Previous Operations: Relevant previous surgery/procedure and date(s) (cholecystectomy, appendectomy, ERCP) Allergies: Allergies Allergy/AdvReac Type Severity Reaction Status Date / Time clindamycin Allergy Hives Verified 11/26/21 14:51 Review of Systems Sugical H&P ROS: Negative: Constitution, Cardiovascular, Respiratory, Neurological, Psychiatric, Hem-Onc, Allergic/Immunologic, Gastrointestinal, Genitourinary, Musculoskeletal, Integumentary, Endocrine and Eyes/Ears/Nose/Throat Exam Surgical H&P Exam: Normal: HEENT, Normal: Heart, Normal: Lungs, Normal: Extremities, Normal: Abdomen, Normal: Skin and Normal: Neurological Plan Diagnosis/Plan: Unchanged I have reviewed the history and physical and performed a pertinent physical examination on my patient. No changes have occurred unless specified.
--- NOTE | 2021-12-27 10:02 | PM.OP ---
Brief Operative Note Date of Service: 12/27/21 Pre-op diagnosis: FH of CRC, anal fissure, blood in stools Post-op diagnosis: same Procedure: see op note Surgeon: Tha Bojorquez MD Anesthesia: MAC Was an Retail Loan Officer used for this Procedure?: No Estimated blood loss (mL): 0 Condition: stable Disposition: PACU
--- NOTE | 2021-12-27 10:03 | P.OP_ITS ---
Operative Note Operative Note Date of Service: 12/27/21 Narrative: Operative Information Procedure Description: Colonoscopy Indication: FH of CRC in mother, blood in stools, anal fissure Anesthesia: MAC COLONOSCOPY Instrument: Olympus variable stiffness adult scope 190L Colonoscopy Monitoring: Vital signs and clinical assessment, continuous EKG monitoring, Pulse oximetry, Carbon Dioxide monitoring and blood pressure monitoring were done throughout the procedure. Colon withdrawal time was 9 minutes. Procedure: The patient was placed in the left lateral decubitis position and pre-procedure medications were administered. After a digital rectal examination of the ano-rectum, the video colonoscope was inserted into the rectum and advanced through the colon to the cecum/TI. The colonoscope was slowly withdrawn in a retrograde panoramic fashion and the colon mucosa was carefully examined including a retroflexed view of the rectum. Findings and interventions are described below. Procedure Difficulty: easy Findings: Terminal Ileum-normal, bx taken Random colon bx taken Right sided retroflexionw as normal Cecum:normal Ascending Colon: normal Transverse Colon -normal Descending Colon:normal Sigmoid Colon: normal Rectum: Retroflexion with small internal hemorrhoids, grade I with small skin tag at anorectum Anorectum - normal, no anal fissure was seen Colon preparation: [place] Bowel Preparation Scale Right colon; 2 Transverse colon: 3 Left colon; 3 (0 = Unprepared colon segment with mucosa not seen due to solid stool that cannot be cleared. 1 = Portion of mucosa of the colon segment seen, but other areas of the colon segment not well seen due to staining, residual stool and/or opaque liquid. 2 = Minor amount of residual staining, small fragments of stool and/or opaque liquid, but mucosa of colon segment seen well. 3 = Entire mucosa of colon segment seen well with no residual staining, small fragments of stool or opaque liquid) Impression and Post Procedure Diagnosis: internal hemorrhoids Plan: High fiber diet leaflet Avoid straining at stool, epsom salts and sitz bath, anusol supps or cream Repeat Colonoscopy in 5 years due to Fh of cRC or earlier if clinically indicated Above findings were reviewed with the patient and relevant handouts were provided if indicated.
[2021-12-27 10:37] VITALS: BP 123/67; PULSE 74; RESP 16; TEMP 36.4; O2SAT 97
[2021-12-27 10:42] VITALS: BP 113/70; PULSE 66; RESP 16; TEMP 36.4; O2SAT 98
[2021-12-27 11:04] VITALS: BP 129/74; PULSE 59; RESP 18; O2SAT 98
== END 2021-12-27 11:33 | disposition home or self-care (01) ==
PROVIDERS: Nurse Practitioner; PCP Nurse Practitioner Primary Care; Visit Provider Internal Medicine Gastroenterology
PROC: 0DJD8ZZ Inspection of Lower Intestinal Tract, Via Natural or Artificial Opening Endoscopic (ICD-10-PCS; CPT 45378; principal; 2021-12-27 10:10)
DX: K60.2 Anal fissure, unspecified (principal); K92.1 Melena; Z80.0 Family history of malignant neoplasm of digestive organs; K64.0 First degree hemorrhoids; K64.4 Residual hemorrhoidal skin tags; Z88.1 Allergy status to other antibiotic agents; Z90.49 Acquired absence of other specified parts of digestive tract
CPT/HCPCS: 45380; 81025; 88305

== ENCOUNTER → 2022-02-04 13:13 | Outpatient (BNVA) | payer MEDICAID, SELFPAY | PROVIDERS: PCP Nurse Practitioner Primary Care; Visit Provider Internal Medicine Gastroenterology | DX: Z13.89 Encounter for screening for other disorder (principal) ==

== ENCOUNTER 2022-02-06 08:10 | Outpatient (REF) | payer MEDICAID, SELFPAY ==
--- NOTE | ~2022-02-06 | CT_ITS ---
EXAMINATION: CT HEAD WITHOUT CONTRAST CLINICAL INFORMATION: Headaches. COMPARISON: CT brain 05/29/2021 TECHNIQUE: Contiguous axial imaging was performed from the skull base to vertex without intravenous administration of contrast. This CT examination was performed using dose optimization techniques as appropriate, variously including the following: *Automated exposure control *Adjustment of mA and/or kV according to patient size (this includes techniques or standardized protocols for targeted exams where dose is matched to indication/reason for exam; i.e. extremities or head) *Use of iterative reconstruction technique DLP: 926 mGy-cm FINDINGS: There is no evidence of acute intracranial hemorrhage or territorial infarction. No abnormal mass effect or midline shift is seen. [place] to white matter differentiation is well preserved. No extra-axial fluid collections are identified. The ventricles are normal in size. There is no abnormal attenuation within the brain parenchyma. The osseous structures and soft tissues are normal. The mastoid air cells and visualized portions of the paranasal sinuses are well aerated. CT/CT head/brain wo con IMPRESSION: No acute intracranial process seen.
== END 2022-02-06 08:11 | disposition home or self-care (01) ==
LOC: HO.CT 08:10
PROVIDERS: Visit Provider Nurse Practitioner Primary Care
DX: G44.89 Other headache syndrome (principal)
CPT/HCPCS: 70450

== ENCOUNTER 2022-02-14 07:51 | Emergency (ER) | payer MEDICAID, SELFPAY ==
[2022-02-14 07:54] VITALS: BP 142/85; PULSE 66; RESP 18; TEMP 37; O2SAT 97; BMI 47.2
--- NOTE | 2022-02-14 07:58 | ED_ITS ---
HPI - Headache General Chief Complaint: Nausea/Vomiting/Diarrhea Stated Complaint: headache vomiting Time Seen by Provider: 02/14/22 07:57 Source: patient and investigative agent Mode of arrival: ambulatory Limitations: no limitations History of Present Illness MD elicited complaint: headache and migraine Pertinent past history: migraines Onset (ago): hour(s) (12) Onset description: gradually Location: generalized and band-like Severity: severe Quality & Timing: throbbing, constant, progressively worsening and similar to previous headaches Exacerbating factors: light and noise Relieving factors: rest Context: occurred at rest Associated symptoms: nausea, vomiting and photophobia Treatments prior to arrival: other (sumatriptan) Related Data Home Medications Medication Instructions Recorded Confirmed cholecalciferol (vitamin D3) 25 25 mcg PO DAILY 02/04/22 mcg (1,000 unit) capsule (Vitamin D3) doxylamine succinate 25 mg tablet 25 mg PO BEDTIME PRN 02/04/22 (Nighttime Sleep-Aid (doxylamine)) Previous Rx's Medication Instructions Recorded ondansetron 4 mg disintegrating 4 mg PO TID PRN 5 Days #10 tab 05/29/21 tablet pantoprazole 40 mg tablet,delayed 40 mg PO DAILY #20 tab 08/06/21 release (Protonix) tramadol 50 mg tablet 50 mg PO Q8H PRN #7 tab 08/06/21 nitroglycerin 0.4 % (w/w) rectal 1 inch [place] BID #30 g 11/26/21 ointment (Rectiv) peg-electrolyte solution 420 gram 240 ml PO Q10M #4000 ml 11/26/21 oral solution (Nulytely Lemon-Eyak) docusate sodium 100 mg capsule 100 mg PO BID #60 cap 02/04/22 (Colace) nifedipine 0.5% ointment #1 ea 02/04/22 ondansetron 4 mg disintegrating 4 mg PO Q8H PRN #20 tab 02/14/22 tablet Allergies Allergy/AdvReac Type Severity Reaction Status Date / Time clindamycin Allergy Hives Verified 02/04/22 13:14 Review of Systems Review of Systems: Constitutional : No Fever, No Chills, No Fatigue ENT/Mouth : No sore throat, No Rhinorrhea Eyes: No Eye Pain, No Swelling, No Redness Cardiovascular : No Chest Pain, No SOB, No Dyspnea on Exertion Respiratory : No Cough, No Sputum Gastrointestinal : pos Nausea, pos Vomiting, No Diarrhea, No abdominal Pain Genitourinary : No Dysuria, No Urinary Frequency, No Hematuria, Musculoskeletal : No joint pain, No Myalgias, No Joint Swelling Skin : No Skin Lesions, No rash Neuro : No Weakness, No Numbness, No Dizziness, positive Headache Psych : No Anxiety/Panic, No Depression Heme/Lymph: No Bruising, No Bleeding,No Lymphadenopathy Endocrine : No Polyuria, No Polydipsia All other systems reviewed and are negative [facility] Past Medical History Attestation statement: The following information was validated with the patient. Medical History Abdominal pain History of biliary stent insertion Migraines Surgical History History of common bile duct surgery History of esophagogastroduodenoscopy (EGD) Hx of appendectomy Hx of cholecystectomy Hx of colonoscopy S/P ERCP Family History Family History Mother HTN (hypertension) Diabetes Father Hernia Paternal Grandmother Colon cancer Paternal Grandfather Diabetes HTN (hypertension) Heart problem Social History Social History Patient Tobacco Use Status: Never used Tobacco Advance Directives: No Advance Directives Information Provided: Yes Physical Exam Vital Signs: Vital Signs: Last Vital Signs Temp 98.6 F 02/14/22 07:54 Pulse 66 02/14/22 07:54 Resp 18 02/14/22 07:54 BP 142/85 H 02/14/22 07:54 Pulse Ox 97 02/14/22 07:54 BMI result Body Mass Index 47.2 Appearance: Alert. Oriented X3. No acute distress. Eyes: Pupils equal, round and reactive to light. + photophobia ENT: Pharynx normal. Neck: Normal inspection. Neck supple. no meningeal signs CVS: Normal heart rate and rhythm. Pulses normal. Respiratory: No respiratory distress. Breath sounds normal. Abdomen: Soft and nontender. Skin: Skin warm and dry. Normal skin color. Normal skin turgor. Extremities: No lower extremity edema. No calf ttp Neuro: Oriented X 3. No motor deficit. No sensory deficit. 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 Dispo per results and findings. Discharge Plan Discharge Clinical Impression: Migraine Qualifiers: Migraine type: without aura Status migrainosus presence: without status migrainosus Intractability: not intractable Qualified Code(s): G43.009 - Migraine without aura, not intractable, without status migrainosus Patient Disposition: Home, Self-Care Instructions: Migraine Headache (ED) Additional Instructions: return to ED for any worsening symptoms or concerns Prescriptions: New ondansetron 4 mg tablet,disintegrating 4 mg PO Q8H PRN (Reason: nausea and vomiting) Qty: 20 0RF No Action (DME) nifedipine 0.5% ointment 30 grams ointment See Rx Instructions .Route .MEDSUPPLY Qty: 1 2RF Rx Instructions: As directed ondansetron 4 mg tablet,disintegrating 4 mg PO TID PRN (Reason: nausea and vomiting) 5 Days Qty: 10 0RF tramadol 50 mg tablet 50 mg PO Q8H PRN (Reason: pain) Qty: 7 0RF pantoprazole [Protonix] 40 mg tablet,delayed release (DR/EC) 40 mg PO DAILY Qty: 20 0RF Rectiv 0.4 % (w/w) ointment 1 inch WV BID Qty: 30 0RF peg-electrolyte soln [Nulytely Lemon-Eyak] 420 gram recon soln 240 ml PO Q10M Qty: 4000 0RF Rx Instructions: until fecal effluent is clear cholecalciferol (vitamin D3) [Vitamin D3] 25 mcg (1,000 unit) capsule 25 mcg PO DAILY 0RF Nighttime Sleep-Aid (doxylamn) 25 mg tablet 25 mg PO BEDTIME PRN (Reason: insomnia) 0RF docusate sodium [Colace] 100 mg capsule 100 mg PO BID Qty: 60 1RF Stand Alone Forms: Work/School Release Print Language: Italian
[2022-02-14] MEDS: 0.9 % Sodium Chloride 1,000 ML 999 ML IV (08:24)
[2022-02-14] MEDS: diphenhydrAMINE HCL 50 MG/ML VIAL 25 MG IVPUSH (08:25)
[2022-02-14] MEDS: Ketorolac Tromethamine 30 MG/ML VIAL IVPUSH (08:28)
[2022-02-14] MEDS: Metoclopramide HCl 10 MG/2 ML VIAL IVPUSH (08:29)
--- NOTE | 2022-02-14 08:29 | PC.NURSE ---
medicated for velazquez, alert, speech clear, skin wpd, pain x 2 days, photophobia and nausea
[2022-02-14 09:47] VITALS: PULSE 70; RESP 19; O2SAT 97
== END 2022-02-14 09:47 | disposition home or self-care (01) ==
PROVIDERS: Emergency Provider Emergency Medicine; PCP Nurse Practitioner Primary Care
DX: G43.009 Migraine without aura, not intractable, without status migrainosus (principal); Z79.899 Other long term (current) drug therapy
CPT/HCPCS: 96361; 96374; 96375; 99282; 99284; J1200; J1885; J2765

== ENCOUNTER 2022-03-17 00:38 | Emergency (ER) | payer MEDICAID, SELFPAY ==
--- NOTE | ~2022-03-17 | CT_ITS ---
EXAMINATION: CT ABDOMEN AND PELVIS WITHOUT CONTRAST CLINICAL INFORMATION: Left flank pain. Rule out kidney stone. COMPARISON: 08/06/2021 TECHNIQUE: Multidetector volumetric imaging was performed from the superior aspect of the liver through the pubic symphysis. Sagittal and coronal reformatted images were obtained on the technologist's workstation. This CT examination was performed using dose optimization techniques as appropriate, variously including the following: *Automated exposure control *Adjustment of mA and/or kV according to patient size (this includes techniques or standardized protocols for targeted exams where dose is matched to indication/reason for exam; i.e. extremities or head) *Use of iterative reconstruction technique DLP: 1391 mGy-cm FINDINGS: LUNG BASES: The visualized lung bases are unremarkable. LIVER, GALLBLADDER, AND BILIARY TREE: The liver is normal in size, shape, and attenuation. No focal hepatic lesion or biliary ductal dilatation is present. Cholecystectomy. PANCREAS: Unremarkable. SPLEEN: Unremarkable. ADRENAL GLANDS: Unremarkable. KIDNEYS AND URETERS: The kidneys are normal in size, shape, and attenuation. No hydronephrosis, hydroureter, or calculi seen. No perinephric stranding. BLADDER: Unremarkable. GASTROINTESTINAL TRACT: The small and large bowel are unremarkable. The appendix is absent. ABDOMINAL WALL: No significant hernia is appreciated. LYMPH NODES: No lymphadenopathy. Mild stranding surrounding the mesenteric vasculature, similar to prior.. VASCULAR: Unremarkable. PELVIC VISCERA: The uterus and adnexa are unremarkable. OSSEOUS STRUCTURES: No acute or suspicious osseous abnormality. CT/CT abdomen pelvis wo con IMPRESSION: No acute finding of the abdomen or pelvis. No acute inflammation. No hydronephrosis or nephrolithiasis. Fleischner guidelines were followed.
[2022-03-17 00:42] VITALS: BP 156/86; PULSE 80; RESP 17; TEMP 36.6; O2SAT 99; BMI 52.3
[2022-03-17 01:10] LABS: MANUAL DIFF FLAG NO
[2022-03-17 01:12] LABS: Basophils Percent Auto 0.2 % (0-2); Eosinophils Absolute Auto 0.2 X10*3/uL (0.0-0.4); Eosinophils Percent Auto 1.4 % (0-4); Hematocrit 34.9 % (37.0-47.0); Hemoglobin 11.6 g/dl (12.0-16.0); Imm Gran Abs Auto 0.03 X10*3/uL (0.00-0.03); Imm Gran Pct Auto 0.3 % (0.0-0.4); Lymphocytes Absolute Auto 4.9 X10*3/uL (1.2-4.9); Lymphocytes Percent Auto 43.1 % (20-40); Mean Corpuscular HGB Conc 33.2 g/dl (31.0-35.0); Mean Corpuscular Hemoglobin 28.9 pg (27.0-33.0); Mean Corpuscular Volume 86.8 fL (80.0-98.0); Mean Platelet Volume 9.9 fL (9.4-12.3); Monocytes Absolute Auto 0.6 X10*3/uL (0.1-1.2); Monocytes Percent Auto 5.7 % (2-11); Neutrophils Absolute Auto 5.6 x10*3/uL (2.0-8.3); Neutrophils Percent Auto 49.3 % (45-73); Platelet Count 413 X10*3/uL (160-400); Red Blood Count 4.02 X10*6/uL (4.20-5.50); Red Cell Distribution Width 14.8 % (11.0-16.0); White Blood Count 11.3 X10*3/uL (4.8-10.8)
[2022-03-17 01:27] LABS: UPreg QC Valid YES; Urine Pregnancy NEGATIVE (NEGATIVE)
[2022-03-17 01:28] LABS: Appearance Urine CLEAR; Color Urine YELLOW; Glucose Urine UA NEG (NEG); Leukocyte Esterase Urine NEG (NEG); Nitrite Urine NEG (NEG); Specific Gravity - Urine >= 1.030 (1.005-1.025); UACC Culture Trigger NO; Urine Blood TRACE (NEG); Urine Ketones NEG (NEG); Urine Protein NEG (NEG-TRACE)
[2022-03-17 01:39] LABS: Alanine Aminotransferase 15 U/L (0-31); Albumin Level 4.3 g/dL (3.5-5.0); Alkaline Phosphatase 82 U/L (39-117); Anion Gap 12 (12-20); Aspartate Amino Transferase 15 U/L (5-31); Bilirubin Total 0.2 mg/dL (0.0-1.0); Blood Urea Nitrogen 11 mg/dL (9-16); Calcium 9.2 mg/dL (8.4-10.2); Carbon Dioxide 22 mmol/L (22-29); Chloride 110 mmol/L (96-108); Creatinine Clr Calc Pharmacy 153.3; Estimated Glomerular Filt Rate > 60; Glucose Random 84 mg/dL (60-115); Potassium 4.3 mmol/L (3.3-5.1); Sodium 140 mmol/L (135-145); Total Protein 7.1 g/dL (6.5-8.0)
[2022-03-17 01:44] LABS: Bacteria Urine 1+ /LPF; Mucus Urine 1+ /LPF; Squamous Epithelial Cell Urine 1+ /LPF
[2022-03-17 01:45] LABS: RBC Urine 0-2 /HPF (0); WBC Urine 0 /HPF (0-4)
--- NOTE | 2022-03-17 03:51 | ED.ABDPAIN ---
HPI - Abdominal Pain General Chief Complaint: Abdominal Pain Stated Complaint: Abdominal Pain Time Seen by Provider: 03/17/22 03:51 Source: patient Mode of arrival: ambulatory Limitations: no limitations History of Present Illness HPI narrative: 31 years old female came in for evaluation of left flank pain. New started as suprapubic pain radiating to the left lower quadrant area and going toward the left flank area pain started for 2 days now, pain is constant, described as dull aching pain 7/10, no associated nausea or vomiting, normal bowel movement, no dysuria, no frequency, no blood in the urine. LMP just finished 2 days ago. Patient had passed history of appendectomy, cholecystectomy, and tubal ligation. Related Data Home Medications Medication Instructions Recorded Confirmed cholecalciferol (vitamin D3) 25 25 mcg PO DAILY 02/04/22 mcg (1,000 unit) capsule (Vitamin D3) doxylamine succinate 25 mg tablet 25 mg PO BEDTIME PRN insomnia 02/04/22 (Nighttime Sleep-Aid (doxylamine)) Previous Rx's Medication Instructions Recorded ondansetron 4 mg disintegrating 4 mg PO TID PRN nausea and 05/29/21 tablet vomiting 5 days #10 tabs pantoprazole 40 mg tablet,delayed 40 mg PO DAILY #20 tabs 08/06/21 release (Protonix) tramadol 50 mg tablet 50 mg PO Q8H PRN pain #7 tabs 08/06/21 nitroglycerin 0.4 % (w/w) rectal 1 inch PA BID #30 grams 11/26/21 ointment (Rectiv) peg-electrolyte solution 420 gram 240 ml PO Q10M #4,000 mL 11/26/21 oral solution (Nulytely [place]) docusate sodium 100 mg capsule 100 mg PO BID #60 caps 02/04/22 (Colace) nifedipine 0.5% ointment #1 ea 02/04/22 ondansetron 4 mg disintegrating 4 mg PO Q8H PRN nausea and 02/14/22 tablet vomiting #20 tabs Allergies Allergy/AdvReac Type Severity Reaction Status Date / Time clindamycin Allergy Hives Verified 03/17/22 00:42 Review of Systems Review of Systems All other systems are reviewed and are negative Constitutional: Reports as per HPI and Reports no additional constitutional complaints Eyes: Reports as per HPI and Reports no additional eye complaints Reports system reviewed and no additional complaints, except as documented Cardiovascular: Reports as per HPI and Reports no additional cardiovascular complaints Respiratory: Reports as per HPI and Reports no additional respiratory complaints Gastrointestinal: Reports as per HPI and Reports no additional gastrointestinal complaints Genitourinary: Reports no additional female genitourinary complaints Musculoskeletal: Reports no additional musculoskeletal complaints Skin/Breast: Reports system reviewed and no additional complaints, except as docu Psychiatric: Reports no additional psychiatric complaints Endocrine: Reports no additional endocrine complaints Hematologic/Lymphatic: Reports no additional hematologic/lymphatic complaints Allergic/Immunologic: Reports no additional allergic/immunologic complaints Reports system reviewed and no additional complaints, except as documented and Reports Abnormal speech present [facility] Past Medical History Medical History Abdominal pain History of biliary stent insertion Migraines Surgical History History of common bile duct surgery History of esophagogastroduodenoscopy (EGD) Hx of appendectomy Hx of cholecystectomy Hx of colonoscopy S/P ERCP Family History Family History Mother HTN (hypertension) Diabetes Father Hernia Paternal Grandmother Colon cancer Paternal Grandfather Diabetes HTN (hypertension) Heart problem Social History Social History Patient Tobacco Use Status: Never used Tobacco Advance Directives: No Advance Directives Information Provided: No Physical Exam ED Vital Signs: Vital Signs - 24 hr 03/17/22 00:42 03/17/22 04:36 Temperature 97.8 F 97.5 F Pulse Rate 80 65 Respiratory Rate 17 16 Blood Pressure 156/86 H 108/48 L Pulse Oximetry 99 98 Oxygen Delivery Method Room Air Room Air BMI result Body Mass Index 52.3 Vital signs have been reviewed as appeared to be correct. Blood pressure normal. Heart rate normal. Respiration rate normal. Temperature normal. Oxygen saturation normal. Appearance: Alert. Oriented X3. No acute distress. Head: Normal external exam. Normocephalic. Atraumatic. No Lerner signs noted. No raccoon eyes noted Eyes: PERRLA. EOMI. Conjunctiva and sclera normal. Eyelids normal. ENT: TM's Normal. Pharynx normal. Uvula midline. Moist mucous membranes. No trismus noted. No drooling noted. No muffled voice noted. Neck: Normal inspection. Neck supple. FROM. No adenopathy. Thyroid Normal. No meningeal signs. No neck mass noted. CVS: Normal heart rate and rhythm. Heart sound normal. No murmurs noted. Pulses normal throughout. Respiratory: No respiratory distress. Painless inspiration. Breath sounds normal. No wheezes/rales/rhonchi noted. Chest nontender. No accessory muscle usage noted or decreased air movement noted. Abdomen: Soft, obese, mild tenderness to the left lower quadrant/suprapubic area.. Bowel sounds normal in all 4 quadrants. No distention noted. No organomegaly noted. No visible injury noted. Back: No CVA tenderness. Full range of motion noted. Skin: Skin warm and dry. Normal skin color. Normal skin turgor. No rashes/lesions/lacerations noted. Extremities: No lower extremity edema. Extremities exhibit normal range of motion. Extremities nontender. Neuro: Oriented X 3. Cranial nerve exam: II-XII are grossly intact No motor deficit. No sensory deficit. Reflexes normal. Course Course Course Narrative: Assessment and plan. 31-year-old female came in for evaluation lower left quadrant abdominal pain, slight leukocytosis however CT of the abdomen and pelvis is unremarkable for intra-abdominal pathology. Patient was instructed to use ibuprofen for pain and follow-up with her PCP. MDM - Abdominal Pain Medical Records Attestation: I reviewed the patient's medical records. Lab Data Attestation: I reviewed the patient's lab results. Result diagrams: 03/17/22 00:57 03/17/22 00:57 Labs: Lab Results 03/17/22 03/17/22 03/17/22 Range/Units 00:33 00:57 00:57 WBC 11.3 H (4.8-10.8) X10*3/uL RBC 4.02 L (4.20-5.50) X10*6/uL Hgb 11.6 L (12.0-16.0) g/dl Hct 34.9 L (37.0-47.0) % MCV 86.8 (80.0-98.0) fL MCH 28.9 (27.0-33.0) pg MCHC 33.2 (31.0-35.0) g/dl RDW 14.8 (11.0-16.0) % Plt Count 413 H (160-400) X10*3/uL MPV 9.9 (9.4-12.3) fL Immature Gran % (Auto) 0.3 (0.0-0.4) % Neut % (Auto) 49.3 (45-73) % Lymph % (Auto) 43.1 H (20-40) % Smyth % (Auto) 5.7 (2-11) % Eos % (Auto) 1.4 (0-4) % Baso % (Auto) 0.2 (0-2) % Lymph # (Auto) 4.9 (1.2-4.9) X10*3/uL Smyth # (Auto) 0.6 (0.1-1.2) X10*3/uL Eos # (Auto) 0.2 (0.0-0.4) X10*3/uL Baso # (Auto) 0.0 (0.0-0.2) X10*3/uL Abs Immat Gran (auto) 0.03 (0.00-0.03) X10*3/uL Absolute Neuts (auto) 5.6 (2.0-8.3) x10*3/uL Absolute Nucleated RBC 0.000 (0.0-0.012) X10*3/uL Nucleated RBC % (auto) 0.0 (0.0-0.2) /100WBC Sodium 140 (135-145) mmol/L Potassium 4.3 (3.3-5.1) mmol/L Chloride 110 H (96-108) mmol/L Carbon Dioxide 22 (22-29) mmol/L Anion Gap 12 (12-20) BUN 11 (9-16) mg/dL Creatinine 0.78 (0.5-1.4) mg/dL Estim Creat Clear Calc 153.3 Estimated GFR > 60 Random Glucose 84 (60-115) mg/dL Calcium 9.2 (8.4-10.2) mg/dL Total Bilirubin 0.2 (0.0-1.0) mg/dL AST 15 (5-31) U/L ALT 15 (0-31) U/L Alkaline Phosphatase 82 (39-117) U/L Total Protein 7.1 (6.5-8.0) g/dL Albumin 4.3 (3.5-5.0) g/dL Urine Color YELLOW Urine Appearance CLEAR Urine pH 6.0 (5.0-8.0) Ur Specific [place] >= 1.030 H (1.005-1.025) Urine Protein NEG (NEG-TRACE) MG/DL Urine Glucose (UA) NEG (NEG) MG/DL Urine Ketones NEG (NEG) MG/DL Urine Blood TRACE (NEG) Urine Nitrite NEG (NEG) Ur Leukocyte Esterase NEG (NEG) Urine RBC 0-2 (0) /HPF Urine WBC 0 (0-4) /HPF Ur Squamous Epith Cells 1+ /LPF Urine Bacteria 1+ /LPF Urine Mucus 1+ /LPF Urine Test (NEGATIVE) 03/17/22 Range/Units 00:57 WBC (4.8-10.8) X10*3/uL RBC (4.20-5.50) X10*6/uL Hgb (12.0-16.0) g/dl Hct (37.0-47.0) % MCV (80.0-98.0) fL MCH (27.0-33.0) pg MCHC (31.0-35.0) g/dl RDW (11.0-16.0) % Plt Count (160-400) X10*3/uL MPV (9.4-12.3) fL Immature Gran % (Auto) (0.0-0.4) % Neut % (Auto) (45-73) % Lymph % (Auto) (20-40) % Smyth % (Auto) (2-11) % Eos % (Auto) (0-4) % Baso % (Auto) (0-2) % Lymph # (Auto) (1.2-4.9) X10*3/uL Smyth # (Auto) (0.1-1.2) X10*3/uL Eos # (Auto) (0.0-0.4) X10*3/uL Baso # (Auto) (0.0-0.2) X10*3/uL Abs Immat Gran (auto) (0.00-0.03) X10*3/uL Absolute Neuts (auto) (2.0-8.3) x10*3/uL Absolute Nucleated RBC (0.0-0.012) X10*3/uL Nucleated RBC % (auto) (0.0-0.2) /100WBC Sodium (135-145) mmol/L Potassium (3.3-5.1) mmol/L Chloride (96-108) mmol/L Carbon Dioxide (22-29) mmol/L Anion Gap (12-20) BUN (9-16) mg/dL Creatinine (0.5-1.4) mg/dL Estim Creat Clear Calc Estimated GFR Random Glucose (60-115) mg/dL Calcium (8.4-10.2) mg/dL Total Bilirubin (0.0-1.0) mg/dL AST (5-31) U/L ALT (0-31) U/L Alkaline Phosphatase (39-117) U/L Total Protein (6.5-8.0) g/dL Albumin (3.5-5.0) g/dL Urine Color Urine Appearance Urine pH (5.0-8.0) Ur Specific [place] (1.005-1.025) Urine Protein (NEG-TRACE) MG/DL Urine Glucose (UA) (NEG) MG/DL Urine Ketones (NEG) MG/DL Urine Blood (NEG) Urine Nitrite (NEG) Ur Leukocyte Esterase (NEG) Urine RBC (0) /HPF Urine WBC (0-4) /HPF Ur Squamous Epith Cells /LPF Urine Bacteria /LPF Urine Mucus /LPF Urine Test NEGATIVE (NEGATIVE) Imaging Data Abdomen and pelvis CT: Attestation: I personally reviewed and interpreted this imaging study as follows: Radiologist's impression: No acute intra-abdominal pathology. Discharge Plan Discharge Clinical Impression: Abdominal pain Patient Disposition: Home, Self-Care Instructions: Abdominal Pain (ED) Prescriptions: No Action (DME) nifedipine 0.5% ointment 30 grams ointment See Rx Instructions .Route .MEDSUPPLY Qty: 1 2RF Rx Instructions: As directed ondansetron 4 mg tablet,disintegrating 4 mg PO TID PRN (Reason: nausea and vomiting) 5 Days Qty: 10 0RF tramadol 50 mg tablet 50 mg PO Q8H PRN (Reason: pain) Qty: 7 0RF pantoprazole [Protonix] 40 mg tablet,delayed release (DR/EC) 40 mg PO DAILY Qty: 20 0RF ondansetron 4 mg tablet,disintegrating 4 mg PO Q8H PRN (Reason: nausea and vomiting) Qty: 20 0RF Rectiv 0.4 % (w/w) ointment 1 inch PA BID Qty: 30 0RF peg-electrolyte soln [Nulytely [place]] 420 gram recon soln 240 ml PO Q10M Qty: 4000 0RF Rx Instructions: until fecal effluent is clear cholecalciferol (vitamin D3) [Vitamin D3] 25 mcg (1,000 unit) capsule 25 mcg PO DAILY Nighttime Sleep-Aid (doxylamn) 25 mg tablet 25 mg PO BEDTIME PRN (Reason: insomnia) docusate sodium [Colace] 100 mg capsule 100 mg PO BID Qty: 60 1RF Referrals: Shruthi Godwin, [employer] [Primary Care Provider] -
[2022-03-17 04:36] VITALS: BP 108/48; PULSE 65; RESP 16; TEMP 36.4; O2SAT 98
[2022-03-17] MEDS: Ibuprofen 600 MG TABLET PO (05:18)
--- NOTE | 2022-03-17 05:42 | PC.NURSE ---
Pt eloped from room after being evaluated by .
[2022-03-17 05:44] VITALS: BP 115/60; PULSE 79; RESP 18; O2SAT 98
== END 2022-03-17 05:43 | disposition left against medical advice (07) ==
PROVIDERS: Emergency Provider Emergency Medicine; PCP Nurse Practitioner Primary Care
DX: R10.9 Unspecified abdominal pain (principal); R10.32 Left lower quadrant pain; Z79.899 Other long term (current) drug therapy
CPT/HCPCS: 36415; 74176; 80053; 81001; 81025; 85025; 99284